=== PATIENT | female | born 1930 | race Caucasian/White ===

== ENCOUNTER 2017-06-12 05:45 | Inpatient (IN) | payer MEDICARE, OTHER ==
[2017-06-12] VITALS (11 sets, daily range): BP systolic 126–142; BP diastolic 43–79; PULSE 56–92; RESP 16–24; TEMP 96.6–97.9; O2SAT 86–100
[~2017-06-12] VITALS: Ht 149.9 cm; Wt 43.6 kg
[~2017-06-12 05:45] MED LIST: ARIC5TAB PO; BENZ100 PO; CELE200 PO; ENOX30P SQ; LORTA5 PO; MILK2400 PO
--- NOTE | 2017-06-12 06:02 | PD ---
HPI Chief Complaint: Cold / Flu Symptoms Time Seen by Provider: 05:55 Travel History International Travel<30 days: No Contact w/Intl Traveler<30days: No Traveled to known affect area: No History of Present Illness HPI The patient is an 86-year-old female that complains of a cough and congestion for 3-4 days. The patient does have some shortness of breath. She denies any chest pain. He does have a history of dementia and bronchitis. She is not on any antibiotics at this time. She did have some nausea and vomiting. PFSH Past Medical History Arthritis: Yes Asthma: Yes Anxiety: Yes Depression: Yes Cancer: No Cardiovascular Problems: No Dementia: Yes (EARLY) Diminished Hearing: Yes Endocrine: No Genitourinary: No Immune Disorder: No Musculoskeletal: Yes Neurologic: No Psychiatric: Yes Reproductive: No Past Surgical History Abdominal Surgery: Yes (APPENDECTOMY) Appendectomy: Yes Cardiac Surgery: No Ear Surgery: No Endocrine Surgery: No Eye Surgery: No Genitourinary Surgery: No Gynecologic Surgery: No Oral Surgery: No Thoracic Surgery: No Other Surgery: Yes Social History Alcohol Use: Yes (ON OCCASION) Tobacco Use: No Substance Use: No Allergies-Medications (Allergen,Severity, Reaction): Coded Allergies: No Known Allergies (Verified Adverse Reaction, Unknown, 06/12/17) Reported Meds & Prescriptions Reported Meds & Active Scripts Active Reported Hydrocodone-Acetaminophen 5-325 mg Tab 1 Tab PO BID PRN Donepezil 5 Mg Tab 5 Mg PO HS Celecoxib 200 Mg Cap 200 Mg PO DAILY Fluoxetine (Fluoxetine HCl) 10 Mg Tab 10 Mg PO DAILY Omeprazole 40 Mg Cap 40 Mg PO DAILY Memantine 5 Mg Tab 5 Mg PO BID Review of Systems Except as stated in HPI: all other systems reviewed are Neg Physical Exam Narrative GENERAL: The patient is alert, answers questions quickly and appropriately and appears oriented 3 in minimal respiratory distress. SKIN: Focused skin assessment warm/dry. HEAD: Atraumatic. Normocephalic. EYES: Pupils equal and round. No scleral icterus. No injection or drainage. ENT: No nasal bleeding or discharge. Mucous membranes pink and moist. NECK: Trachea midline. No JVD. CARDIOVASCULAR: Regular rate and rhythm. No murmur appreciated. RESPIRATORY: No accessory muscle use. Clear to auscultation except for a few widely scattered wheezes. Breath sounds equal bilaterally. GASTROINTESTINAL: Abdomen soft, non-tender, nondistended. Hepatic and splenic margins not palpable. MUSCULOSKELETAL: No obvious deformities. No clubbing. No cyanosis. No edema. NEUROLOGICAL: Awake and alert. No obvious cranial nerve deficits. Motor grossly within normal limits. Normal speech. PSYCHIATRIC: Appropriate mood and affect; insight and judgment normal. Data Data Last Documented VS Vital Signs Date Time Temp Pulse Resp B/P (MAP) Pulse Ox O2 Delivery O2 Flow Rate FiO2 06/12/17 06:30 98 Venturi Mask 50 06/12/17 05:58 87 18 06/12/17 05:54 97.9 133/65 (87) Orders Orders Electrocardiogram (06/12/17 05:55) Complete Blood Count With Diff (06/12/17 05:55) Comprehensive Metabolic Panel (06/12/17 05:55) Influenzae A/B Antigen (06/12/17 05:55) Urinalysis - C+S If Indicated (06/12/17 05:55) Blood Culture (06/12/17 05:55) Chest, Pa & Lat (06/12/17 05:55) Arterial Blood Gas (Abg) (06/12/17 05:55) Sodium Chloride 0.9% Flush (Ns Flush) (06/12/17 06:00) Lactic Acid (06/12/17 06:07) Labs Laboratory Tests Test 06/12/17 05:58 06/12/17 06:35 Blood Gas Puncture Site RT RADIAL Blood Gas Patient Temperature 98.6 Blood Gas HCO3 24 mmol/L Blood Gas Base Excess 1.3 mmol/L Blood Gas Oxygen Saturation 83 % Arterial Blood pH 7.50 Arterial Blood Partial Pressure CO2 31 mmHG Arterial Blood Partial Pressure O2 48 mmHG Arterial Blood Oxygen Content 14.1 Vol % Arterial Blood Carboxyhemoglobin 1.6 % Arterial Blood Methemoglobin 0.6 % Blood Gas Hemoglobin 12.1 G/DL Blood Gas Inspired Oxygen 21 % White Blood Count 14.6 TH/MM3 Red Blood Count 4.17 MIL/MM3 Hemoglobin 12.4 GM/DL Hematocrit 37.8 % Mean Corpuscular Volume 90.7 FL Mean Corpuscular Hemoglobin 29.7 PG Mean Corpuscular Hemoglobin Concent 32.7 % Red Cell Distribution Width 13.1 % Platelet Count 203 TH/MM3 Mean Platelet Volume 8.4 FL Neutrophils (%) (Auto) 87.7 % Lymphocytes (%) (Auto) 7.1 % Monocytes (%) (Auto) 5.0 % Eosinophils (%) (Auto) 0.0 % Basophils (%) (Auto) 0.2 % Neutrophils # (Auto) 12.9 TH/MM3 Lymphocytes # (Auto) 1.0 TH/MM3 Monocytes # (Auto) 0.7 TH/MM3 Eosinophils # (Auto) 0.0 TH/MM3 Basophils # (Auto) 0.0 TH/MM3 CBC Comment DIFF FINAL Differential Comment Blood Urea Nitrogen 20 MG/DL Random Glucose 105 MG/DL Albumin 3.0 GM/DL Calcium Level 7.9 MG/DL Sodium Level 136 MEQ/L Potassium Level 3.3 MEQ/L Chloride Level 100 MEQ/L Carbon Dioxide Level 26.1 MEQ/L Anion Gap 10 MEQ/L MDM Medical Decision Making Medical Screen Exam Complete: Yes Emergency Medical Condition: Yes Medical Record Reviewed: Yes Interpretation(s) The blood gases on room air show pH 7.50, CO2 31, PO2 48 with O2 sat 83% on room air. EKG shows sinus rhythm with frequent supraventricular complexes but no acute ST elevation or depression. Differential Diagnosis Pneumonia, bronchitis, hypoxemia, electrolyte disorder, anemia, viral syndrome Narrative Course Is now 07 and the patient is transferred to Dr. Lieberman. Karan Mancilla MD Jun 12, 2017 06:02
[2017-06-12] MEDS ORDERED: CELE1CAP8 PO (06:08)
[2017-06-12] MEDS ORDERED: HYDR-3516 PO (06:08)
[2017-06-12] MEDS ORDERED: MEMA1TAB PO (06:08)
[2017-06-12] MEDS ORDERED: OMEP40CA2 PO (06:08)
[2017-06-12] MEDS ORDERED: FLUO10TA PO (06:08)
[2017-06-12] MEDS ORDERED: DONE5TAB7 PO (06:08)
[2017-06-12 06:13] LABS: BLOOD GAS BASE EXCESS 1.3 mmol/L (-2-2); BLOOD GAS CARBOXYHEMOGLOBIN 1.6 % (0-4); BLOOD GAS HCO3 24 mmol/L (22-26); BLOOD GAS METHEMOGLOBIN 0.6 % (0-2); BLOOD GAS O2 HGB SATURATION 83 % (90-100); BLOOD GAS OXYGEN CONTENT 14.1 Vol % (12.0-20.0); BLOOD GAS PCO2 31 mmHG (38-42); BLOOD GAS PO2 48 mmHG (61-120); BLOOD GAS TOTAL HGB 12.1 G/DL (12.0-16.0); TEMP CORR TO 98.6
[2017-06-12 06:14] LABS: CRITICAL VALUE YES; DRAW SITE RT RADIAL; FIO2 21 %; NUMBER OF ARTERIAL PUNCTURES 1; STAT YES; ULNAR PULSE Y
[2017-06-12 06:51] LABS: AUTOMATED NEUTROPHIL # 12.9 TH/MM3 (1.8-7.7); BASOPHIL % 0.2 % (0.0-2.0); HEMATOCRIT 37.8 % (35.0-46.0); HEMO FLAGS DIFF FINAL; LYMPH % 7.1 % (9.0-44.0); MEAN CELL VOLUME 90.7 FL (80.0-100.0); MEAN CORPUSCULAR HEMOGLOBIN 29.7 PG (27.0-34.0); MEAN CORPUSCULAR HGB CONC 32.7 % (32.0-36.0); NEUT % 87.7 % (16.0-70.0); PLATELET COUNT 203 TH/MM3 (150-450); RED BLOOD COUNT 4.17 MIL/MM3 (4.00-5.30); RED CELL DISTRIBUTION WIDTH 13.1 % (11.6-17.2); WHITE BLOOD COUNT 14.6 TH/MM3 (4.0-11.0)
[2017-06-12 07:00] LABS: CHLORIDE 100 MEQ/L (98-107); POTASSIUM 3.3 MEQ/L (3.5-5.1); SODIUM (NA) 136 MEQ/L (136-145)
[2017-06-12 07:04] LABS: ANION GAP 10 MEQ/L (5-15); BICARBONATE 26.1 MEQ/L (21.0-32.0)
[2017-06-12 07:05] LABS: BLOOD UREA NITROGEN 20 MG/DL (7-18)
[2017-06-12 07:08] LABS: ALT (GPT) 18 U/L (10-53); AST (GOT) 21 U/L (15-37); GLOMERULAR FILTRATION RATE 96 ML/MIN (>89)
[2017-06-12 07:09] LABS: TOTAL BILIRUBIN ADULT 0.4 MG/DL (0.2-1.0)
[2017-06-12 07:10] LABS: ALKALINE PHOSPHATASE 65 U/L (45-117)
--- NOTE | 2017-06-12 07:17 | RADRPT ---
EXAM DATE/TIME: 06/12/2017 06:04 [facility] COMPARISON: No previous studies available for comparison. INDICATIONS : Cough. MEDICAL HISTORY : None. SURGICAL HISTORY : None. ENCOUNTER: Initial ACUITY: 1 day PAIN SCORE: Non-responsive. LOCATION: Bilateral chest FINDINGS: There is bilateral interstitial disease. The appearance suggests chronic bilateral interstitial lung disease. There is a mild increased parenchymal changes in the right upper lung.. No pleural effusions . Heart size is within normal limits. The bony structures appear to grossly intact. CONCLUSION: There appears to be chronic bilateral interstitial lung disease. There is a focal parenchymal consoli dation in the right upper lung. Federico Flower MD on June 12, 2017 at 7:14 Board Certified Radiologist. This report was verified electronically.
[2017-06-12] MEDS ORDERED: cefTRIAXone INJ 1,000 MG in SODIUM CHLORIDE 0.9% INJ 100 ML IV ONE (07:45)
[2017-06-12] MEDS ORDERED: AZITHROMYCIN INJ 500 MG in SODIUM CHLOR 0.9% 250 ML INJ 250 ML IV ONE (07:45)
[2017-06-12] MEDS ORDERED: RESP: ALBUTEROL 2.5 MG/IPRATROPIUM 0.5 MG NEB (SCH) NEB ONE (07:45)
--- NOTE | 2017-06-12 07:59 | PD ---
Data Data Last Documented VS Vital Signs Date Time Temp Pulse Resp B/P (MAP) Pulse Ox O2 Delivery O2 Flow Rate FiO2 06/12/17 07:05 57 18 Venturi Mask 50 06/12/17 07:03 135/49 (77) 100 06/12/17 05:54 97.9 Orders Orders Electrocardiogram (06/12/17 05:55) Complete Blood Count With Diff (06/12/17 05:55) Comprehensive Metabolic Panel (06/12/17 05:55) Influenzae A/B Antigen (06/12/17 05:55) Urinalysis - C+S If Indicated (06/12/17 05:55) Blood Culture (06/12/17 05:55) Chest, Pa & Lat (06/12/17 05:55) Arterial Blood Gas (Abg) (06/12/17 05:55) Sodium Chloride 0.9% Flush (Ns Flush) (06/12/17 06:00) Lactic Acid (06/12/17 06:07) Albuterol-Ipratropium Neb (Duoneb Neb) (06/12/17 07:45) Ceftriaxone Inj (Rocephin Inj) (06/12/17 07:45) Azithromycin Inj (Zithromax Inj) (06/12/17 07:45) Admit Order (Ed Use Only) (06/12/17 ) Labs Laboratory Tests Test 06/12/17 05:58 06/12/17 06:35 06/12/17 07:50 Blood Gas Puncture Site RT RADIAL Blood Gas Patient Temperature 98.6 Blood Gas HCO3 24 mmol/L Blood Gas Base Excess 1.3 mmol/L Blood Gas Oxygen Saturation 83 % Arterial Blood pH 7.50 Arterial Blood Partial Pressure CO2 31 mmHG Arterial Blood Partial Pressure O2 48 mmHG Arterial Blood Oxygen Content 14.1 Vol % Arterial Blood Carboxyhemoglobin 1.6 % Arterial Blood Methemoglobin 0.6 % Blood Gas Hemoglobin 12.1 G/DL Blood Gas Inspired Oxygen 21 % White Blood Count 14.6 TH/MM3 Red Blood Count 4.17 MIL/MM3 Hemoglobin 12.4 GM/DL Hematocrit 37.8 % Mean Corpuscular Volume 90.7 FL Mean Corpuscular Hemoglobin 29.7 PG Mean Corpuscular Hemoglobin Concent 32.7 % Red Cell Distribution Width 13.1 % Platelet Count 203 TH/MM3 Mean Platelet Volume 8.4 FL Neutrophils (%) (Auto) 87.7 % Lymphocytes (%) (Auto) 7.1 % Monocytes (%) (Auto) 5.0 % Eosinophils (%) (Auto) 0.0 % Basophils (%) (Auto) 0.2 % Neutrophils # (Auto) 12.9 TH/MM3 Lymphocytes # (Auto) 1.0 TH/MM3 Monocytes # (Auto) 0.7 TH/MM3 Eosinophils # (Auto) 0.0 TH/MM3 Basophils # (Auto) 0.0 TH/MM3 CBC Comment DIFF FINAL Differential Comment Blood Urea Nitrogen 20 MG/DL Creatinine 0.59 MG/DL Random Glucose 105 MG/DL Total Protein 8.2 GM/DL Albumin 3.0 GM/DL Calcium Level 7.9 MG/DL Alkaline Phosphatase 65 U/L Aspartate Amino Transf (AST/SGOT) 21 U/L Alanine Aminotransferase (ALT/SGPT) 18 U/L Total Bilirubin 0.4 MG/DL Sodium Level 136 MEQ/L Potassium Level 3.3 MEQ/L Chloride Level 100 MEQ/L Carbon Dioxide Level 26.1 MEQ/L Anion Gap 10 MEQ/L Estimat Glomerular Filtration Rate 96 ML/MIN Lactic Acid Level 1.7 mmol/L Urine Collection Type CLEAN CATCH Urine Color YELLOW Urine Turbidity SLIGHT Urine pH 6.0 Urine Specific [place] 1.026 Urine Protein 100 mg/dL Urine Glucose (UA) NEG mg/dL Urine Ketones TRACE mg/dL Urine Occult Blood MOD Urine Nitrite NEG Urine Bilirubin NEG Urine Leukocyte Esterase TRACE Urine RBC 10-14 /hpf Urine WBC 25-49 /hpf Urine Squamous Epithelial Cells 0-5 /hpf Urine Amorphous Sediment FEW Urine Bacteria MOD /hpf Microscopic Urinalysis Comment CULTURE INDICATED Urine Collection Time [address] [facility] Supervised Visit with VAUGHN: No Narrative Course Patient care assumed from Dr. Mancilla at 07 100, this is an 86-year-old female with a history of mild dementia and pulmonary fibrosis presents emergency department with cough and congestion for the past few days. Her son became concerned when she was more sleepy than normal today and brought her into the hospital, he states that he wanted her to come to the hospital yesterday but she didn't want to. She's not wearing her hearing aids and is difficult to communicate however she is alert and awake and oriented. Chest x-ray does reveal a right upper lobe infiltrate along with chronic pulmonary scarring throughout the lungs. Initial sats are 91 on room air, she's been on the simple mask since she's been here, we are giving duo Neb starting on azithromycin and Rocephin will weaned to nasal cannula. Discussed with Dr. Cao for admission to the hospital. Diagnosis Primary Impression: Hypoxia Additional Impression: Pneumonia Devin Lieberman MD Jun 12, 2017 07:59
[2017-06-12 08:03] LABS: BLOOD, URINE MOD (NEG); GLUCOSE,URINE NEG (NEG); KETONE, URINE TRACE mg/dL (NEG); NITRITE,URINE NEG (NEG)
[2017-06-12 08:04] LABS: METHOD OF COLLECTION CLEAN CATCH
[2017-06-12 08:05] LABS: URINE COLOR YELLOW (YELLW/STRAW)
[2017-06-12] MEDS: SODIUM CHLORIDE 0.9% FLUSH 10 ML FLUSH IVF PRN ×2 (08:05→08:57)
[2017-06-12 08:15] LABS: BACTERIA, URINE MOD /hpf; COMMENT (UR) CULTURE INDICATED; CULTURE IF INDICATED CULTURE INDICATED; SQUAMOUS EPITHELIAL CELL URINE 0-5 /hpf (0-5)
[2017-06-12 08:16] LABS: COMMENT2 (UR) MUCOUS PRESENT
[2017-06-12] MEDS ORDERED: RESP: ALBUTEROL 1.25 MG/3 ML NEB (PRN) NEB (08:30)
[2017-06-12] MEDS: methylPREDNISolone SOD SUCC 125 MG/2 ML VIAL IV PUSH SCH ×2 (08:59→21:37)
[2017-06-12] MEDS: RESP: ALBUTEROL 2.5 MG/IPRATROPIUM 0.5 MG NEB (SCH) NEB ×3 (09:54→21:10)
--- NOTE | 2017-06-12 10:06 | EKG ---
Date Performed: 06/12/2017 Time Performed: 06:30:22 PTAGE: 86 years EKG: Sinus rhythm WITH FREQUENT SUPRAVENTRICULAR PREMATURE COMPLEXES ABNORMAL RHYTHM ECG PREVIOUS TRACING : 11/05/2013 22.38 Compared to the previous tracing PACs present DOCTOR: Jenny Allen Interpretating Date/Time 06/12/2017 10:06:01
--- NOTE | 2017-06-12 10:44 | HHI.HP ---
HPI Service [facility] Primary Care Physician Miller Oliveira MD Admission Diagnosis Pneumonia, Hypoxic respiratory failure. Diagnoses: Chief Complaint: feeling sick, coughing Travel History International Travel<30 Days: No Contact w/Intl Traveler <30 Da: No Traveled to Known Affected Are: No Sepsis Criteria SIRS Criteria (2 or more): RR > 20 or PaCO2 < 32, WBC > 50251, < 4000 or > 10 % bands Sepsis Criteria (SIRS+source): Infect source susp/known History of Present Illness 86-year-old white female being admitted for sepsis secondary to pneumonia. Full history was attempted however history is limited since the patient is very hard of hearing (thus unable to answer all questions) and is disoriented at least partially (to time). Per the patient she states that she started feeling sick at home last night, had poor sleep, had increased coughing and did have some nonspecific vomiting which was "a little bit." She said her son brought her to the emergency room. Patient denies any diarrhea or abdominal pain or any dysuria. She thinks it's 1970s and is unsure of what month it is. She says she lives with her son. In the emergency room she was found to have an elevated white count and a Angelika < 2. Given zithromax and rocephin. Review of Systems unable to obtain due to difficulty communicating and some disorientation Past Family Social History Past Medical History asthma as a child Past Medical History Arthritis: Yes Asthma: Yes Anxiety: Yes Depression: Yes Dementia: Yes (EARLY) Diminished Hearing: Yes Musculoskeletal: Yes Psychiatric: Yes Past Surgical History Abdominal Surgery: Yes (APPENDECTOMY) Allergies: Coded Allergies: No Known Allergies (Verified Adverse Reaction, Unknown, 06/12/17) Family History HTN Social History lives with son, denies tobacco usage but reports her smoked when he was alive and while living with him Physical Exam Vital Signs Vital Signs Date Time Temp Pulse Resp B/P (MAP) Pulse Ox O2 Delivery O2 Flow Rate FiO2 06/12/17 10:05 96.6 83 20 133/62 (85) 95 12/6/17 09:54 06/12/17 09:10 59 16 132/59 (83) 96 Nasal Cannula 2.00 06/12/17 08:15 97 Nasal Cannula 2.00 06/12/17 08:10 56 16 126/43 (70) 97 Nasal Cannula 2.00 06/12/17 08:04 96 Nasal Cannula 2.00 06/12/17 07:05 57 18 Venturi Mask 50 06/12/17 07:03 56 18 135/49 (77) 100 Venturi Mask 50 06/12/17 06:30 98 Venturi Mask 50 06/12/17 05:58 87 18 91 Room Air 06/12/17 05:54 97.9 87 18 133/65 (87) 91 Physical Exam VS: Afebrile GENERAL: Elderly thin female, otherwise well-nourished, sitting up in bed, awake , alert, no acute distress SKIN: Warm and dry. No obvious tears or abrasions. EYES: No scleral icterus. No injection or drainage. ENT: No nasal bleeding or discharge. Mucous membranes pink and moist. CARDIOVASCULAR: Regular rate and rhythm. no murmurs RESPIRATORY: No accessory muscle use. Has obvious right sided diffuse rhonchi and crackles, left side is clear GASTROINTESTINAL: Abdomen soft, non-tender, nondistended. Extremities: No clubbing, cyanosis, or edema. No obvious deformities. MUSCULOSKELETAL: grossly intact ROM with 5/5 strength in BL upper and lower extremities proximally NEUROLOGICAL: Awake and alert. No obvious cranial nerve deficits. No facial droop nor slurred speech noted. PSYCHIATRIC: Appropriate mood and affect; oriented only to person and place, not time. Laboratory Laboratory Tests Test 06/12/17 05:58 06/12/17 06:35 06/12/17 07:50 Blood Gas Puncture Site RT RADIAL Blood Gas Patient Temperature 98.6 Blood Gas HCO3 24 Blood Gas Base Excess 1.3 Blood Gas Oxygen Saturation 83 Arterial Blood pH 7.50 Arterial Blood Partial Pressure CO2 31 Arterial Blood Partial Pressure O2 48 Arterial Blood Oxygen Content 14.1 Arterial Blood Carboxyhemoglobin 1.6 Arterial Blood Methemoglobin 0.6 Blood Gas Hemoglobin 12.1 Blood Gas Inspired Oxygen 21 White Blood Count 14.6 Red Blood Count 4.17 Hemoglobin 12.4 Hematocrit 37.8 Mean Corpuscular Volume 90.7 Mean Corpuscular Hemoglobin 29.7 Mean Corpuscular Hemoglobin Concent 32.7 Red Cell Distribution Width 13.1 Platelet Count 203 Mean Platelet Volume 8.4 Neutrophils (%) (Auto) 87.7 Lymphocytes (%) (Auto) 7.1 Monocytes (%) (Auto) 5.0 Eosinophils (%) (Auto) 0.0 Basophils (%) (Auto) 0.2 Neutrophils # (Auto) 12.9 Lymphocytes # (Auto) 1.0 Monocytes # (Auto) 0.7 Eosinophils # (Auto) 0.0 Basophils # (Auto) 0.0 CBC Comment DIFF FINAL Differential Comment Blood Urea Nitrogen 20 Creatinine 0.59 Random Glucose 105 Total Protein 8.2 Albumin 3.0 Calcium Level 7.9 Alkaline Phosphatase 65 Aspartate Amino Transf (AST/SGOT) 21 Alanine Aminotransferase (ALT/SGPT) 18 Total Bilirubin 0.4 Sodium Level 136 Potassium Level 3.3 Chloride Level 100 Carbon Dioxide Level 26.1 Anion Gap 10 Estimat Glomerular Filtration Rate 96 Lactic Acid Level 1.7 Urine Collection Type CLEAN CATCH Urine Color YELLOW Urine Turbidity SLIGHT Urine pH 6.0 Urine Specific [place] 1.026 Urine Protein 100 Urine Glucose (UA) NEG Urine Ketones TRACE Urine Occult Blood MOD Urine Nitrite NEG Urine Bilirubin NEG Urine Leukocyte Esterase TRACE Urine RBC 10-14 Urine WBC 25-49 Urine Squamous Epithelial Cells 0-5 Urine Amorphous Sediment FEW Urine Bacteria MOD Microscopic Urinalysis Comment CULTURE INDICATED Urine Collection Time 0750 Date/Time Source Procedure Growth Status 06/12/17 06:40 Blood Peripheral Aerobic Blood Culture Pending Received 06/12/17 06:40 Blood Peripheral Anaerobic Blood Culture Pending Received 06/12/17 06:35 Nasal Washing Influenza Types A,B Antigen (ARMAAN) - Final NEGATIVE FOR FLU A AND B ANTIGEN.... Complete 06/12/17 07:50 Urine Clean Catch Urine Culture Pending Received Result Diagram: 06/12/17 0635 06/12/1735 Caprini VTE Risk Assessment Caprini VTE Risk Assessment: Mod/High Risk (score >= 2) Caprini Risk Assessment Model Point Value = 1 Point Value = 2 Point Value = 3 Point Value = 5 Age 41-60 Minor surgery BMI > 25 kg/m2 Swollen legs Varicose veins or History of unexplained or recurrent spontaneous Oral contraceptives or hormone replacement Sepsis (< 1 month) Serious lung disease, including pneumonia (< 1 month) Abnormal pulmonary function Acute myocardial infarction Congestive heart failure (< 1 month) History of inflammatory bowel disease Medical patient at bed rest Age 61-74 Arthroscopic surgery Major open surgery (> 45 min) Laparoscopic surgery (> 45 min) Malignancy Confined to bed (> 72 hours) Immobilizing plaster cast Central venous access Age >= 75 History of VTE Family history of VTE Factor V Leiden Prothrombin [id number] Lupus anticoagulant Anticardiolipin antibodies Elevated serum homocysteine Heparin-induced thrombocytopenia Other congenital or acquired thrombophilia Stroke (< 1 month) Elective arthroplasty Hip, pelvis, or leg fracture Acute spinal cord injury (< 1 month) Prophylaxis Regimen Total Risk Factor Score Risk Level Prophylaxis Regimen 0-1 Low Early ambulation 2 Moderate Order ONE of the following: *Sequential Compression Device (SCD) *Heparin 5000 units SQ BID 3-4 Higher Order ONE of the following medications: *Heparin 5000 units SQ TID *Enoxaparin/Lovenox 40 mg SQ daily (WT < 150 kg, CrCl > 30 mL/min) *Enoxaparin/Lovenox 30 mg SQ daily (WT < 150 kg, CrCl > 10-29 mL/min) *Enoxaparin/Lovenox 30 mg SQ BID (WT < 150 kg, CrCl > 30 mL/min) AND/OR *Sequential Compression Device (SCD) 5 or more Highest Order ONE of the following medications: *Heparin 5000 units SQ TID (Preferred with Epidurals) *Enoxaparin/Lovenox 40 mg SQ daily (WT < 150 kg, CrCl > 30 mL/min) *Enoxaparin/Lovenox 30 mg SQ daily (WT < 150 kg, CrCl > 10-29 mL/min) *Enoxaparin/Lovenox 30 mg SQ BID (WT < 150 kg, CrCl > 30 mL/min) AND *Sequential Compression Device (SCD) Assessment and Plan Assessment and Plan Sepsis secondary to community-acquired pneumonia - IV fluids, antibiotics, f/u blood and urine cultures Pneumonia - Antibiotics as above, DuoNebs - sputum studies + antigens ordered - Independent review the chest x-ray shows diffuse patchy infiltrates with possible prominent focus consolidation in the right upper lung Acute respiratory distress 2/2 hypoxia - Likely secondary to pneumonia and possible undiagnosed chronic lung disease secondary to secondhand smoke + hx of asthma - Supplemental oxygen, wean as tolerated, IV steroids until on room air - RT confirms sats down to 86% on RA, Wells score 0, ordering d-dimer - fall precautions, PT eval given frail appearance gerd - home PPI dementia - home donepezil and memantine chronic pain - home celecoxib and norco D/w with case management - son relayed that pt lives home alone and he lives nearby to check on her and assist. Physician Certification 2 Midnight Certification Type: Admission for Inpatient Services Order for Inpatient Services The services are ordered in accordance with Medicare regulations or non- Medicare payer requirements, as applicable. In the case of services not specified as inpatient-only, they are appropriately provided as inpatient services in accordance with the 2-midnight benchmark. Estimated LOS (days): 3 days is the estimated time the patient will need to remain in the hospital, assuming treatment plan goals are met and no additional complications. Post-Hospital Plan: Not yet determined Jose A Cao MD Jun 12, 2017 10:44
[2017-06-12] MEDS ORDERED: SODIUM CHLOR 0.9% 1000 ML INJ 1,000 ML IV ONE (11:00)
[2017-06-12] MEDS: FLUoxetine HCL 10 MG CAP PO SCH (13:03)
[2017-06-12] MEDS: CELECOXIB 200 MG CAP PO SCH (13:03)
[2017-06-12] MEDS: MEMANTINE HCL 5 MG TAB PO SCH ×2 (13:03→21:37)
[2017-06-12] MEDS: PANTOPRAZOLE SOD 40 MG DELAYED RELEASE TAB PO SCH (13:03)
[2017-06-12] MEDS: SODIUM CHLOR 0.9% 1000 ML INJ 1,000 ML IV SCH (13:04)
[2017-06-12] MEDS: DONEPEZIL HCL 5 MG TAB PO SCH (21:37)
[2017-06-13] VITALS (8 sets, daily range): BP systolic 124–141; BP diastolic 58–68; PULSE 80–102; RESP 18–26; TEMP 97.2–99; O2SAT 92–97
[2017-06-13] MEDS: RESP: ALBUTEROL 2.5 MG/IPRATROPIUM 0.5 MG NEB (SCH) NEB ×4 (03:23→21:33)
[2017-06-13] MEDS: cefTRIAXone INJ 1,000 MG in SODIUM CHLORIDE 0.9% INJ 100 ML IV SCH (07:10)
[2017-06-13] MEDS: FLUoxetine HCL 10 MG CAP PO SCH (09:49)
[2017-06-13] MEDS: methylPREDNISolone SOD SUCC 125 MG/2 ML VIAL IV PUSH SCH ×3 (09:50→21:40)
[2017-06-13] MEDS: MEMANTINE HCL 5 MG TAB PO SCH ×2 (09:50→21:40)
[2017-06-13] MEDS: CELECOXIB 200 MG CAP PO SCH (09:50)
[2017-06-13] MEDS: PANTOPRAZOLE SOD 40 MG DELAYED RELEASE TAB PO SCH (09:50)
[2017-06-13] MEDS: AZITHROMYCIN INJ 500 MG in SODIUM CHLOR 0.9% 250 ML INJ 250 ML IV SCH (09:56)
[2017-06-13] MEDS: SODIUM CHLOR 0.9% 1000 ML INJ 1,000 ML IV SCH (12:13)
[2017-06-13] MEDS: ENOXAPARIN SODIUM 30 MG/0.3 ML SYRINGE SQ SCH (12:13)
--- NOTE | 2017-06-13 15:05 | HHI.PR ---
Subjective Remarks RN denies any deterioration. Pt herself says she that's coughing up some blood, son affirms this as well. She says she's not feeling like she could be at home. No lung doctor. Son says she has a hx of scar tissue. Objective Vital Signs Date Time Temp Pulse Resp B/P (MAP) Pulse Ox O2 Delivery O2 Flow Rate FiO2 06/13/17 12:00 97.6 101 20 124/59 (80) 95 06/13/17 10:14 96 Nasal Cannula 2.00 06/13/17 08:00 97.5 82 20 141/65 (90) 95 06/13/17 04:00 97.7 102 26 136/59 (84) 97 06/13/17 00:00 97.4 87 24 137/65 (89) 96 06/12/17 21:10 94 Nasal Cannula 2.00 06/12/17 20:00 96.9 79 24 131/57 (81) 97 06/12/17 15:54 93 Nasal Cannula 2.00 06/12/17 15:50 86 21 06/12/17 15:50 96.6 77 20 128/63 (84) 95 I/O 06/12/17 06/12/17 06/12/17 06/13/17 06/13/17 06/13/17 06:59 14:59 22:59 06:59 14:59 22:59 Intake Total 350 ml 1453 ml 480 ml 460 ml Balance 350 ml 1453 ml 480 ml 460 ml Intake Oral 180 ml 480 ml 460 ml IV Total 350 ml 1273 ml # Voids 1 2 2 # Bowel Movements 0 0 Result Diagram: 06/12/1735 06/12/17 0635 Objective Remarks Very minimally labored breathing No cyanosis Diffuse expiratory wheezing bilaterally more on the left than the right A/P Assessment and Plan Sepsis secondary to community-acquired pneumonia - IV fluids, antibiotics, f/u blood cultures, UC neg, Pneumonia - Antibiotics as above, DuoNebs - antigens ordered - negative - Independent review the chest x-ray shows diffuse patchy infiltrates with possible prominent focus consolidation in the right upper lung - will order solumedrol given persistent SOB and wheezing Hemoptysis - new problem, ? bronchitis vs other cause, should be further elucidated via CTA Acute respiratory distress 2/2 hypoxia - Likely secondary to pneumonia and possible undiagnosed chronic lung disease secondary to secondhand smoke + hx of asthma - Supplemental oxygen, wean as tolerated, continue IV steroids, sputum culture pending - ddimer elevated, ordering CT chest angio - fall precautions, PT eval given frail appearance gerd - home PPI dementia - home donepezil and memantine chronic pain - home celecoxib and norco Lovenox for DVT prevention Jose A Cao MD Jun 13, 2017 15:05
--- NOTE | 2017-06-13 20:53 | RADRPT ---
EXAM DATE/TIME: 06/13/2017 19:55 [facility] COMPARISON: CHEST PA & LAT, June 12, 2017, 6:04. INDICATIONS : Difficulty breathing. Cough. IV CONTRAST: 75 cc Omnipaque 350 (iohexol) IV RADIATION DOSE: 8.07 CTDIvol (mGy) MEDICAL HISTORY : Dementia. Asthma. SURGICAL HISTORY : Appendectomy. ENCOUNTER: Initial ACUITY: 3 days PAIN SCALE: 0/10 LOCATION: Bilateral chest TECHNIQUE: Volumetric scanning of the chest was performed using a pulmonary embolism protocol MIP images were re constructed. Using automated exposure control and adjustment of the mA and/or kV according to patien t size, radiation dose was kept as low as reasonably achievable to obtain optimal diagnostic quality images. DICOM format image data is available electronically for review and comparison. Follow-up recommendations for detected pulmonary nodules are based at a minimum on nodule size and pa tient risk factors according to Fleischner Society Guidelines. FINDINGS: PULMONARY ARTERIES: No filling defects are seen in the pulmonary arteries through the segmental level. LUNGS: Diffuse ground-glass infiltrates are noted bilaterally suggestive of moderate pulmonary edema or pneu monia. Clinical correlation is recommended. No pulmonary nodule or mass is noted. PLEURAE: Tiny bilateral pleural effusions are noted. There is no pleural thickening. MEDIASTINUM: Pretracheal, right paratracheal, AP window and subcarinal mediastinal as well as bilateral hilar lymp hadenopathy is noted and is nonspecific. The heart is enlarged. MUSCULOSKELETAL: Degenerative changes and scoliosis of the thoracolumbar spine are noted. Mild chronic compression def ormity involving T12 is noted. MISCELLANEOUS: The visualized upper abdominal organs demonstrate no acute abnormality. CONCLUSION: 1. No evidence of pulmonary embolism. 2. Diffuse ground-glass infiltrates bilaterally suggestive of moderate pulmonary edema or pneumonia. Clinical correlation is recommended. 3. Pretracheal, right paratracheal, AP window and subcarinal mediastinal as well as bilateral hilar l ymphadenopathy which is nonspecific. 4. Cardiomegaly. 5. Small bilateral pleural effusions. 6. Degenerative changes and scoliosis of the thoracolumbar spine. 7. Chronic mild compression deformity involving T12. Devin Parekh MD on June 13, 2017 at 20:46 Board Certified Radiologist. This report was verified electronically.
[2017-06-13] MEDS ORDERED: IOHEXOL 350 MG/ML 10 ML VIAL (for RAD DIAG) IVCONTRAST ONE (20:55)
--- NOTE | 2017-06-13 21:14 | MB ---
cc: Shadia AGOSTO M.D. DATE OF CONSULTATION 06/13/17 REASON FOR CONSULTATION Pneumonia and pulmonary infiltrates with hemoptysis. HISTORY OF PRESENT ILLNESS This is an 86-year-old female with a history of cough, chest congestion and hemoptysis who was admitted through the emergency room since she was having persistent cough and vomiting and feeling sick for the past two to three days. The patient was not running any fever. She denied any abdominal pains or nausea or vomiting. She was brought to the ER and a chest x-ray was done which showed diffuse interstitial lung disease as well as a right upper lobe lung infiltrate. The patient has been coughing up a little bloody mucus and had an elevated white count and thus she was started on IV antibiotics including Rocephin and Zithromax and now admitted. She has been on oxygen at two liters and was hypoxic on room air. Denied any GI bleed. She has had no leg or calf muscle pains. PAST MEDICAL HISTORY 1. History of asthma remotely 2. History for an appendectomy 3. Hip fracture and repair 4. History of mild dementia. No history of hypertension or diabetes. HABITS No history of smoking or significant alcohol use but was exposed to secondhand smoke from her . ALLERGIES None were listed. REVIEW OF SYSTEMS The patient denies recent weight loss. She has had some cough, congestion, chest tightness and wheezing. She has epigastric distress with reflux. No urinary symptoms. No leg or calf muscle pains, but has some joint pains and hip pain. She has memory loss. No depression or anxiety. PHYSICAL EXAMINATION GENERAL: This is a thinly built elderly lady who is sitting upright in no acute distress on oxygen at two liters. VITAL SIGNS: Blood pressure 130/70, pulse 85, respirations 20, temperature 97.6. HEENT: Head normocephalic. Pupils are reactive. Tongue is moist. Throat was clear. Nasal mucosa edematous. NECK: Supple. No bruits. No venous distension. No thyromegaly. CHEST: Equal movements with percussion note resonant throughout. Crackles heard throughout the lower lung srinivasan with wheezes bilaterally. HEART: Irregular S1, S2 with no murmur. No S3. ABDOMEN: Soft, scaphoid without masses. No organomegaly or tenderness. Bowel sounds are active. EXTREMITIES: No edema. Mild varicosities and no calf tenderness. Homans' sign is negative. NEUROLOGIC: Reflexes are 1+ with no gross motor deficits or sensory deficits. Cranial nerves grossly intact. RECTAL: Exam is deferred. IMPRESSION 1. Right upper lobe pneumonia with hypoxemia. 2. Interstitial lung disease with possible UIP 3. History of asthma. 4. Dementia. 5. Rule out pulmonary emboli 6. Degenerative arthritis. PLAN The patient has been started on antibiotic coverage including Rocephin 1 gram IV and Zithromax 500 mg IV which we will continue. Sputum will be sent for Gram stain and culture, nebulized DuoNeb solution added q.i.d. Also a CTA of the chest to be obtained. The patient will have a pulmonary function study at the bedside. Oxygen supplementation continued at 2-3 liters nasal cannula. Sputum will be sent for Gram stain and culture. The patient may need a bronchoscopy eventually. We will wait for the CT results to determine the same. Thank you, Dr. Stratton , for this consultation. MD GARRISON Daniel/ /7:08 PM /8:50 PM
[2017-06-13] MEDS: SODIUM CHLORIDE 0.9% FLUSH 10 ML FLUSH IVF PRN (21:40)
[2017-06-13] MEDS: DONEPEZIL HCL 5 MG TAB PO SCH (21:40)
[2017-06-14] VITALS (22 sets, daily range): BP systolic 112–158; BP diastolic 45–87; PULSE 64–114; RESP 18–29; TEMP 96.4–97.8; O2SAT 29–98
[2017-06-14] MEDS: RESP: ALBUTEROL 2.5 MG/IPRATROPIUM 0.5 MG NEB (SCH) NEB ×4 (03:35→21:04)
[2017-06-14] MEDS: ACETAMINOPHEN/HYDROcodone 325 MG/5 MG TAB PO PRN (03:47)
[2017-06-14] MEDS ORDERED: FUROSEMIDE 40 MG/4 ML VIAL IV PUSH ONE ×2 (04:00→05:15)
[2017-06-14] MEDS ORDERED: POTASSIUM CHLORIDE 20 MEQ CONTROLLED RELEASE TAB PO ONE (04:00)
[2017-06-14] MEDS ORDERED: MORPHINE SULFATE 2 MG/ML INJ IV PUSH ONE (05:15)
[2017-06-14] MEDS: methylPREDNISolone SOD SUCC 125 MG/2 ML VIAL IV PUSH SCH ×2 (05:28→15:00)
[2017-06-14] MEDS: cefTRIAXone INJ 1,000 MG in SODIUM CHLORIDE 0.9% INJ 100 ML IV SCH (06:19)
[2017-06-14] MEDS: AZITHROMYCIN INJ 500 MG in SODIUM CHLOR 0.9% 250 ML INJ 250 ML IV SCH (08:12)
[2017-06-14] MEDS: MEMANTINE HCL 5 MG TAB PO SCH ×2 (09:41→19:56)
[2017-06-14] MEDS: PANTOPRAZOLE SOD 40 MG DELAYED RELEASE TAB PO SCH (09:41)
[2017-06-14] MEDS: FLUoxetine HCL 10 MG CAP PO SCH (09:41)
[2017-06-14] MEDS: CELECOXIB 200 MG CAP PO SCH (09:41)
[2017-06-14 10:20] LABS: BLOOD GAS BASE EXCESS 5.5 mmol/L (-2-2); BLOOD GAS CARBOXYHEMOGLOBIN 1.3 % (0-4); BLOOD GAS HCO3 29 mmol/L (22-26); BLOOD GAS METHEMOGLOBIN 0.6 % (0-2); BLOOD GAS O2 HGB SATURATION 94 % (90-100); BLOOD GAS OXYGEN CONTENT 14.2 Vol % (12.0-20.0); BLOOD GAS PCO2 34 mmHg (38-42); BLOOD GAS PO2 66 mmHg (61-120); BLOOD GAS TOTAL HGB 10.8 G/DL (12.0-16.0)
[2017-06-14 10:20] LABS: BICARBONATE 27.8 MEQ/L (21.0-32.0)
[2017-06-14 10:21] LABS: CRITICAL VALUE YES; DRAW SITE RT RADIAL; LITER FLOW 2 L/M; NUMBER OF ARTERIAL PUNCTURES 1; OXYGEN DEVICE NASAL CANNULA; STAT YES; ULNAR PULSE PRESENT
[2017-06-14 10:22] LABS: POTASSIUM 2.7 MEQ/L (3.5-5.1)
[2017-06-14] MEDS: SODIUM CHLOR 0.9% 1000 ML INJ 1,000 ML IV SCH (10:38)
--- NOTE | 2017-06-14 11:23 | HHI.PR ---
Subjective Remarks Nursing does report some deterioration since last night, patient apparently needed Ventimask and then needed BiPAP. Her fluids were held and she was given Lasix with some improvement hours later this morning. Per RT the patient is now doing better and is asking to be transitioned to the nasal cannula. Son is at bedside. Patient denies having any chest pain at all during last night. Objective Vital Signs Date Time Temp Pulse Resp B/P (MAP) Pulse Ox O2 Delivery O2 Flow Rate FiO2 06/14/17 10:00 64 26 122/61 (81) 93 06/14/17 09:40 95 Nasal Cannula 2.00 06/14/17 09:00 90 23 135/74 (94) 97 06/14/17 08:00 97.5 82 29 133/59 (83) 94 06/14/17 07:30 97 35 06/14/17 04:10 93 35 06/14/17 04:00 96.4 88 18 158/69 (98) 94 06/14/17 00:00 97.1 104 18 141/71 (94) 91 06/13/17 21:34 95 Nasal Cannula 2.00 06/13/17 20:00 97.2 87 18 141/68 (92) 92 06/13/17 16:00 99.0 80 20 136/58 (84) 94 06/13/17 12:00 97.6 101 20 124/59 (80) 95 I/O 06/13/17 06/13/17 06/13/17 06/14/17 06/14/17 06/14/17 07:00 15:00 23:00 07:00 15:00 23:00 Intake Total 480 ml 460 ml 1028 ml 250 ml Output Total 500 ml Balance 480 ml 460 ml 528 ml 250 ml Intake Oral 480 ml 460 ml 240 ml IV Total 788 ml 250 ml Output Urine Total 500 ml # Voids 2 2 3 # Bowel Movements 0 0 Result Diagram: 06/12/17 0635 06/14/17 [address] Angiography 06/13/17 0000 Signed Impressions: Service Date/Time: June 19:55 - CONCLUSION: 1. No evidence of pulmonary embolism. 2. Diffuse ground-glass infiltrates bilaterally suggestive of moderate pulmonary edema or pneumonia. Clinical correlation is recommended. 3. Pretracheal, right paratracheal, AP window and subcarinal mediastinal as well as bilateral hilar lymphadenopathy which is nonspecific. 4. Cardiomegaly. 5. Small bilateral pleural effusions. 6. Degenerative changes and scoliosis of the thoracolumbar spine. 7. Chronic mild compression deformity involving T12. Devin Parekh MD Chest X-Ray 06/12/17 0555 Signed Impressions: Service Date/Time: Monday, June 12, 2017 06:04 - CONCLUSION: There appears to be chronic bilateral interstitial lung disease. There is a focal parenchymal consolidation in the right upper lung. Federico Flower MD Objective Remarks Mildly labored breathing on BiPAP and now on Ventimask Breath sounds are coarse bilaterally and slightly diminished in bases No cyanosis noted, no lower extremity edema, very minimal JVD A/P Assessment and Plan Acute respiratory distress 2/2 hypoxia - Transient worsening o/n, doing ok on venti mask now. - Likely secondary to pneumonia and possible undiagnosed chronic lung disease secondary to secondhand smoke + hx of asthma plus possible heart failure - My independent review of the CT scan shows diffuse groundglass infiltrates as per the radiology read, I do see very small bilateral effusions, and some signs of cardiomegaly. Thus I'm ordering an echocardiogram and cutting off IV fluids until echo results RN. We'll give Lasix manually and cautiously to avoid any hypotension. Sepsis secondary to community-acquired pneumonia - antibiotics, f/u blood cultures, UC neg. blood cultures are negative. Holding IV fluids for now given above status Pneumonia - Antibiotics as above, DuoNebs - antigens ordered - negative - We'll consider lowering Solu-Medrol dose later tonight Hypokalemia - We'll immediately supplement with by mouth, hold off on IV given possible fluid overload, checking magnesium, recheck BMP in a.m. Hemoptysis - ? bronchitis vs other cause, CTA shows no obvious causes, no obvious recurrence since yesterday - fall precautions, PT eval given frail appearance gerd - home PPI dementia - home donepezil and memantine chronic pain - home celecoxib and norco Lovenox for DVT prevention Jose A Cao MD Jun 14, 2017 11:23
[2017-06-14] MEDS: ENOXAPARIN SODIUM 30 MG/0.3 ML SYRINGE SQ SCH (11:50)
[2017-06-14] MEDS ORDERED: POTASSIUM CHLORIDE 10 MEQ CONTROLLED RELEASE TAB PO SCH (12:00)
--- NOTE | 2017-06-14 12:48 | ECHRPT ---
Indication: SHORTNESS OF BREATH CONCLUSIONS The left ventricular systolic function is low normal with an estimated ejection fraction in the rang e of 50- 55%. Probable calcification on the chordae tendineae, partial mobile portion, not sure if chordal tear or vegetation Moderate mitral valve regurgitation. Trace aortic valve regurgitation. There is mild to moderate tricuspid valve regurgitation. BP: 158 / 69 HR: 88 Rhythm: Sinus MEASUREMENTS (Male / Female) Normal Values Technical Quality:Fair 2D ECHO LV Diastolic Diameter PLAX 3.6 cm 4.2 - 5.9 / 3.9 - 5.3 cm LV Systolic Diameter PLAX 2.6 cm IVS Diastolic Thickness 0.8 cm 0.6 - 1.0 / 0.6 - 0.9 cm LVPW Diastolic Thickness 0.8 cm 0.6 - 1.0 / 0.6 - 0.9 cm LV Relative Wall Thickness 0.5 RV Internal Dim ED PLAX 1.7 cm LVOT Diameter 1.9 cm Aortic Root Diameter 2.6 cm LA Systolic Diameter LX 2.8 cm 3.0 - 4.0 / 2.7 - 3.8 cm M-MODE AV Cusp Separation MM 1.5 cm DOPPLER AV Peak Velocity 113.0 cm/s AV Peak Gradient 5.1 mmHg AV Mean Gradient 3.0 mmHg AV Velocity Time Integral 28.2 cm LVOT Peak Velocity 68.9 cm/s LVOT Peak Gradient 1.9 mmHg LVOT Velocity Time Integral 15.2 cm AV Area Cont Eq vti 1.5 cm AV Area Cont Eq pk 1.7 cm Mitral E Point Velocity 150.0 cm/s Mitral A Point Velocity 145.0 cm/s Mitral E to A Ratio 1.0 LV E' Lateral Velocity 6.1 cm/s Mitral E to LV E' Lateral Ratio 24.4 LV E' Septal Velocity 4.9 cm/s Mitral E to LV E' Septal Ratio 30.8 TR Peak Velocity 330.0 cm/s TR Peak Gradient 43.6 mmHg Right Atrial Pressure 10.0 mmHg Pulmonary Artery Systolic Pressu 53.6 mmHg Right Ventricular Systolic Press 53.6 mmHg PV Peak Velocity 63.9 cm/s PV Peak Gradient 1.6 mmHg FINDINGS LEFT VENTRICLE Normal left ventricular size. Wall thickness is normal. The left ventricular systolic function is low normal with an estimated ejection fraction in the rang e of 50- 55%. Probable calcification on the chordae tendineae, partial mobile portion, not sure if chordal tear or vegetation RIGHT VENTRICLE Normal right ventricular size and systolic function. LEFT ATRIUM The left atrial size is moderately dilated. RIGHT ATRIUM The right atrial size is normal. ATRIAL SEPTUM Normal atrial septal thickness without atrial level shunting by limited color doppler interrogation. AORTA The aortic root and proximal ascending aorta are normal in size on limited imaging. MITRAL VALVE Moderate mitral valve regurgitation. Mild thickening of the mitral valve leaflets. Moderate mitral annular calcification. No mitral valve stenosis. AORTIC VALVE Aortic valve sclerosis is present. Trace aortic valve regurgitation. No aortic valve stenosis. TRICUSPID VALVE There is mild to moderate tricuspid valve regurgitation. The estimated pulmonary arterial pressure is 53.6 mmHg. No tricuspid valve stenosis. PULMONARY VALVE No pulmonary valve regurgitation or stenosis. VESSELS The inferior vena cava is normal in size. PERICARDIUM No pericardial effusion. Nirmal Irving DO (Electronically Signed) Final Date:14 June 2017 12:46
--- NOTE | 2017-06-14 18:53 | HHI.PR ---
Subjective Remarks In ICU for hypoxia. Now on O2 2 L Was given lasix IV . K+ level is 2.7. Objective Vital Signs Date Time Temp Pulse Resp B/P (MAP) Pulse Ox O2 Delivery O2 Flow Rate FiO2 06/14/17 18:00 82 21 126/65 (85) 95 06/14/17 17:00 96 23 112/71 (85) 94 06/14/17 16:00 97.5 100 26 122/77 (92) 94 06/14/17 15:00 78 22 136/60 (85) 98 06/14/17 14:00 86 22 135/70 (91) 96 06/14/17 13:00 86 23 127/65 (85) 95 06/14/17 12:00 96.8 102 26 131/87 (102) 95 06/14/17 11:00 88 24 132/62 (85) 95 06/14/17 10:00 64 26 122/61 (81) 93 06/14/17 09:40 95 Nasal Cannula 2.00 06/14/17 09:00 90 23 135/74 (94) 97 06/14/17 08:00 97.5 82 29 133/59 (83) 94 06/14/17 07:30 97 35 06/14/17 04:10 93 35 06/14/17 04:00 96.4 88 18 158/69 (98) 94 06/14/17 00:00 97.1 104 18 141/71 (94) 91 06/13/17 21:34 95 Nasal Cannula 2.00 06/13/17 20:00 97.2 87 18 141/68 (92) 92 I/O 06/13/17 06/13/17 06/13/17 06/14/17 06/14/17 06/14/17 07:00 15:00 23:00 07:00 15:00 23:00 Intake Total 480 ml 460 ml 1028 ml 250 ml 480 ml Output Total 500 ml 800 ml Balance 480 ml 460 ml 528 ml 250 ml -320 ml Intake Oral 480 ml 460 ml 240 ml 480 ml IV Total 788 ml 250 ml Output Urine Total 500 ml 800 ml # Voids 2 2 3 # Bowel Movements 0 0 0 Result Diagram: 06/12/17 0635 06/14/17 0950 Objective Remarks GENERAL: This is a thinly built elderly lady who is sitting upright in no acute distress on oxygen . HEENT: Head normocephalic. Pupils are reactive. Tongue is dry. Throat was clear. Nasal mucosa clear NECK: Supple. No bruits. No venous distension. No thyromegaly. CHEST: Equal movements with percussion note resonant throughout. Crackles heard throughout the lower lung srinivasan with wheezes bilaterally. HEART: Irregular S1, S2 with no murmur. No S3. ABDOMEN: Soft, scaphoid without masses. No organomegaly or tenderness. Bowel sounds are active. EXTREMITIES: No edema. Mild varicosities and no calf tenderness. Homans' sign is negative. NEUROLOGIC: Reflexes are 1+ with no gross motor deficits or sensory deficits. Cranial nerves grossly intact. RECTAL: Exam is deferred. Assessment and Plan Assessment and Plan IMPRESSION 1. Right upper lobe pneumonia with hypoxemia. 2. Interstitial lung disease with possible UIP 3. History of asthma. 4. Dementia. 5. Rule out pulmonary emboli 6. Degenerative arthritis. 7. CHF Plan: 1. Taper solumedrol to 60 mg IV q8h. 2. o2 at 2 L 3. Lasix 20 mg IV daily. 4. Replace potassium. 5. CXR BMP in am. 6. Cont Antibiotics , Rocephin ,Zithromax 7. 2 D echo. Shadia Bull MD Jun 14, 2017 18:52
[2017-06-14] MEDS: POTASSIUM CHLORIDE 20 MEQ CONTROLLED RELEASE TAB PO SCH (19:56)
[2017-06-14] MEDS: DONEPEZIL HCL 5 MG TAB PO SCH (19:57)
--- NOTE | 2017-06-14 21:28 | RADRPT ---
EXAM DATE/TIME: 06/14/2017 19:09 [facility] COMPARISON: CT PULMONARY ANGIOGRAM, June 13, 2017, 19:55. INDICATIONS : Shortness of breath. MEDICAL HISTORY : Dementia. Asthma SURGICAL HISTORY : Appendectomy. ENCOUNTER: Subsequent ACUITY: 4 - 6 days PAIN SCORE: 0/10 LOCATION: Bilateral chest FINDINGS: Persistent diffuse infiltrates are again noted consistent with moderate pulmonary edema versus pneumo [place]. Clinical correlation is recommended. The heart is enlarged. CONCLUSION: 1. Persistent diffuse infiltrates consistent with moderate pulmonary edema versus pneumonia. Clinical correlation is recommended. 2. Stable cardiomegaly. Devin Parekh MD on June 14, 2017 at 21:25 Board Certified Radiologist. This report was verified electronically.
[2017-06-14] MEDS: methylPREDNISolone SOD SUCC 40 MG/1 ML VIAL IV PUSH SCH (22:04)
[2017-06-15] VITALS (19 sets, daily range): BP systolic 110–159; BP diastolic 50–79; PULSE 84–120; RESP 17–35; TEMP 96.3–98.6; O2SAT 88–97
[2017-06-15] MEDS: RESP: ALBUTEROL 2.5 MG/IPRATROPIUM 0.5 MG NEB (SCH) NEB ×3 (03:10→19:32)
[2017-06-15] MEDS ORDERED: FUROSEMIDE 40 MG/4 ML VIAL IV PUSH ONE (04:15)
[2017-06-15] MEDS: methylPREDNISolone SOD SUCC 40 MG/1 ML VIAL IV PUSH SCH ×3 (05:46→20:20)
[2017-06-15] MEDS: cefTRIAXone INJ 1,000 MG in SODIUM CHLORIDE 0.9% INJ 100 ML IV SCH (05:47)
[2017-06-15 06:26] LABS: BICARBONATE 28.4 MEQ/L (21.0-32.0)
[2017-06-15] MEDS: AZITHROMYCIN INJ 500 MG in SODIUM CHLOR 0.9% 250 ML INJ 250 ML IV SCH (08:41)
[2017-06-15] MEDS: CELECOXIB 200 MG CAP PO SCH (08:41)
[2017-06-15] MEDS: POTASSIUM CHLORIDE 20 MEQ CONTROLLED RELEASE TAB PO SCH ×2 (08:41→20:20)
[2017-06-15] MEDS: FLUoxetine HCL 10 MG CAP PO SCH (08:41)
[2017-06-15] MEDS: MEMANTINE HCL 5 MG TAB PO SCH ×2 (08:41→20:20)
[2017-06-15] MEDS: PANTOPRAZOLE SOD 40 MG DELAYED RELEASE TAB PO SCH (08:41)
[2017-06-15] MEDS ORDERED: FUROSEMIDE 20 MG/2 ML VIAL IV PUSH SCH (09:00)
[2017-06-15] MEDS ORDERED: POTASSIUM CHLORIDE 20 MEQ CONTROLLED RELEASE TAB PO SCH (09:00)
[2017-06-15] MEDS: ENOXAPARIN SODIUM 30 MG/0.3 ML SYRINGE SQ SCH (12:02)
[2017-06-15] MEDS: ACETAMINOPHEN/HYDROcodone 325 MG/5 MG TAB PO PRN (12:21)
--- NOTE | 2017-06-15 15:10 | HHI.PR ---
Subjective Remarks Nursing denies any deterioration since last night except for mild pink tinged phlegm. Patient says she still doesn't feel as good as she'd want to; although when asked why, she has no further explanation. Objective Vital Signs Date Time Temp Pulse Resp B/P (MAP) Pulse Ox O2 Delivery O2 Flow Rate FiO2 06/15/17 13:00 88 27 117/50 (72) 90 06/15/17 12:00 98 22 124/61 (82) 93 06/15/17 12:00 98 22 124/61 (82) 93 06/15/17 11:00 88 27 133/66 (88) 95 06/15/17 11:00 88 27 133/66 (88) 95 06/15/17 10:00 104 23 110/64 (79) 94 06/15/17 09:41 96 Nasal Cannula 4.00 06/15/17 09:00 98.2 102 24 141/77 (98) 93 06/15/17 09:00 102 24 141/77 (98) 93 06/15/17 08:00 84 22 149/71 (97) 97 06/15/17 07:00 88 21 145/67 (93) 97 06/15/17 06:00 98 24 146/70 (95) 91 06/15/17 06:00 98 06/15/17 05:00 90 23 138/67 (90) 95 06/15/17 04:00 100 06/15/17 04:00 98.5 100 26 150/77 (101) 94 06/15/17 03:00 90 25 150/79 (102) 93 06/15/17 02:00 88 24 159/78 (105) 93 06/15/17 02:00 88 06/15/17 01:00 92 24 152/76 (101) 94 06/15/17 00:00 120 06/15/17 00:00 97.5 120 35 149/78 (101) 88 06/14/17 23:00 92 27 126/63 (84) 95 06/14/17 22:00 114 28 138/45 (76) 82 06/14/17 22:00 114 06/14/17 21:04 97 Nasal Cannula 2.50 06/14/17 21:00 78 22 148/65 (92) 97 06/14/17 20:00 103 06/14/17 20:00 97.8 104 22 151/74 (99) 92 06/14/17 19:00 104 28 125/79 (94) 93 06/14/17 18:00 82 21 126/65 (85) 95 06/14/17 17:00 96 23 112/71 (85) 94 06/14/17 16:00 97.5 100 26 122/77 (92) 94 I/O 06/14/17 06/14/17 06/14/17 06/15/17 06/15/17 06/15/17 07:00 15:00 23:00 07:00 15:00 23:00 Intake Total 1028 ml 250 ml 480 ml 460 ml 720 ml Output Total 500 ml 800 ml 1225 ml 950 ml Balance 528 ml 250 ml -320 ml -765 ml -230 ml Intake Oral 240 ml 480 ml 360 ml 720 ml IV Total 788 ml 250 ml 100 ml Output Urine Total 500 ml 800 ml 1225 ml 950 ml # Voids 3 1 # Bowel Movements 0 0 Result Diagram: 06/12/17 0635 06/15/17 0600 Objective Remarks unlabored breathing on 2 L impressive wheezing BL, heart sounds rrr A/P Assessment and Plan Acute respiratory distress 2/2 hypoxia - Improving, requiring 2 L today - Likely secondary to pneumonia and possible undiagnosed chronic lung disease secondary to secondhand smoke + hx of asthma plus possible heart failure - My independent review of the CT scan shows diffuse groundglass infiltrates as per the radiology read, I do see very small bilateral effusions, and some signs of cardiomegaly. Thus I'm ordering an echocardiogram and cutting off IV fluids until echo results RN. We'll give Lasix manually and cautiously to avoid any hypotension. - echo is stable community-acquired pneumonia - antibiotics, f/u blood cultures neg x 3. UC neg. blood cultures are negative. Holding IV fluids for now given above status Hypokalemia - still needing supplement, recheck BMP in AM Hemoptysis - ? bronchitis vs other cause, CTA shows no obvious causes, no obvious recurrence since yesterday - fall precautions, PT eval given frail appearance gerd - home PPI dementia - home donepezil and memantine chronic pain - home celecoxib and norco Lovenox for DVT prevention Jose A Cao MD Jun 15, 2017 15:10
[2017-06-15] MEDS ORDERED: POTASSIUM CHLORIDE 20 MEQ CONTROLLED RELEASE TAB PO ONE (15:15)
[2017-06-15] MEDS ORDERED: METOLAZONE 2.5 MG TAB PO ONE (15:15)
[2017-06-15] MEDS: DONEPEZIL HCL 5 MG TAB PO SCH (20:20)
[2017-06-16] VITALS (9 sets, daily range): BP systolic 102–137; BP diastolic 54–71; PULSE 79–100; RESP 16–22; TEMP 97–98.6; O2SAT 86–98
[2017-06-16] MEDS: cefTRIAXone INJ 1,000 MG in SODIUM CHLORIDE 0.9% INJ 100 ML IV SCH (06:14)
[2017-06-16 06:49] LABS: POTASSIUM 3.3 MEQ/L (3.5-5.1)
[2017-06-16 06:55] LABS: BICARBONATE 30.7 MEQ/L (21.0-32.0)
[2017-06-16] MEDS: RESP: ALBUTEROL 2.5 MG/IPRATROPIUM 0.5 MG NEB (SCH) NEB ×3 (07:50→19:20)
[2017-06-16] MEDS ORDERED: FUROSEMIDE 20 MG/2 ML VIAL IV PUSH ONE (08:00)
[2017-06-16] MEDS: MEMANTINE HCL 5 MG TAB PO SCH ×2 (08:12→20:43)
[2017-06-16] MEDS: CELECOXIB 200 MG CAP PO SCH (08:12)
[2017-06-16] MEDS: AZITHROMYCIN INJ 500 MG in SODIUM CHLOR 0.9% 250 ML INJ 250 ML IV SCH (08:12)
[2017-06-16] MEDS: POTASSIUM CHLORIDE 20 MEQ CONTROLLED RELEASE TAB PO SCH ×2 (08:13→20:43)
[2017-06-16] MEDS: PANTOPRAZOLE SOD 40 MG DELAYED RELEASE TAB PO SCH (08:13)
[2017-06-16] MEDS: methylPREDNISolone SOD SUCC 40 MG/1 ML VIAL IV PUSH SCH ×2 (09:00→20:42)
[2017-06-16] MEDS: ENOXAPARIN SODIUM 30 MG/0.3 ML SYRINGE SQ SCH (10:27)
[2017-06-16] MEDS: FLUoxetine HCL 10 MG CAP PO SCH (10:27)
--- NOTE | 2017-06-16 16:49 | HHI.PR ---
Subjective Remarks Respiratory therapy reports that the patient is still requiring 2 L, she will desat to the 80s on room air. Patient herself says she can go home alone because there is no other to help her. Has no new complaints at this time. Objective Vital Signs Date Time Temp Pulse Resp B/P (MAP) Pulse Ox O2 Delivery O2 Flow Rate FiO2 06/16/17 12:00 97.0 88 20 130/60 (83) 94 06/16/17 08:00 97.8 89 22 121/62 (81) 96 06/16/17 07:55 95 Nasal Cannula 2.00 06/16/17 07:50 86 21 06/16/17 04:00 98.2 85 18 137/71 (93) 96 06/16/17 00:00 98.6 100 18 130/71 (90) 97 06/15/17 20:00 98.6 110 18 136/62 (86) 93 06/15/17 19:30 94 Nasal Cannula 3.00 I/O 06/15/17 06/15/17 06/15/17 06/16/17 06/16/17 06/16/17 07:00 15:00 23:00 07:00 15:00 23:00 Intake Total 460 ml 720 ml 200 ml 650 ml Output Total 1225 ml 950 ml 250 ml 625 ml Balance -765 ml -230 ml -250 ml 200 ml 25 ml Intake Oral 360 ml 720 ml 650 ml IV Total 100 ml 200 ml Output Urine Total 1225 ml 950 ml 250 ml 625 ml # Voids 1 5 # Bowel Movements 0 Result Diagram: 06/12/17 0635 06/16/17 0550 Objective Remarks unlabored breathing on 2 L unchanged anterior wheezing BL, heart sounds rrr A/P Assessment and Plan Acute respiratory distress 2/2 hypoxia - Unchanged oxygen requirement of 2 L - I suspect she will go home on this tomorrow - Likely secondary to pneumonia and possible undiagnosed chronic lung disease secondary to secondhand smoke + hx of asthma plus possible heart failure - on low dose lasix and metolazone per pulm, appreciate inpt, suspect mild hemoptysis from bronchiectasis - echo is stable community-acquired pneumonia - antibiotics, f/u blood cultures neg.UC neg. blood cultures are negative. Hypokalemia - improving, replacing Hemoptysis -per pulm, appreciate inpt, suspect mild hemoptysis from bronchiectasis, no need for bronchoscopy - fall precautions, PT eval given frail appearance gerd - home PPI dementia - home donepezil and memantine chronic pain - home celecoxib and norco Lovenox for DVT prevention Anticipate SNF placement in AM Jose A Cao MD Jun 16, 2017 16:49
[2017-06-16] MEDS ORDERED: FUROSEMIDE 40 MG/4 ML VIAL IV PUSH SCH (18:00)
[2017-06-16] MEDS: DONEPEZIL HCL 5 MG TAB PO SCH (20:42)
[2017-06-17] VITALS: BP 124/70; PULSE 108; RESP 16; TEMP 99.1; O2SAT 96
[2017-06-17 05:57] LABS: BICARBONATE 30.4 MEQ/L (21.0-32.0); POTASSIUM 4.5 MEQ/L (3.5-5.1)
[2017-06-17] MEDS: cefTRIAXone INJ 1,000 MG in SODIUM CHLORIDE 0.9% INJ 100 ML IV SCH (06:49)
[2017-06-17 07:26] VITALS: O2SAT 98
[2017-06-17] MEDS: RESP: ALBUTEROL 2.5 MG/IPRATROPIUM 0.5 MG NEB (SCH) NEB ×2 (07:26→13:47)
[2017-06-17] MEDS: AZITHROMYCIN INJ 500 MG in SODIUM CHLOR 0.9% 250 ML INJ 250 ML IV SCH (07:55)
[2017-06-17] MEDS: methylPREDNISolone SOD SUCC 40 MG/1 ML VIAL IV PUSH SCH (07:56)
[2017-06-17] MEDS: FLUoxetine HCL 10 MG CAP PO SCH (07:56)
[2017-06-17] MEDS: PANTOPRAZOLE SOD 40 MG DELAYED RELEASE TAB PO SCH (07:57)
[2017-06-17] MEDS: CELECOXIB 200 MG CAP PO SCH (07:57)
[2017-06-17] MEDS: POTASSIUM CHLORIDE 20 MEQ CONTROLLED RELEASE TAB PO SCH (07:57)
[2017-06-17] MEDS: MEMANTINE HCL 5 MG TAB PO SCH (07:57)
[2017-06-17 08:00] VITALS: BP 123/59; PULSE 73; RESP 18; TEMP 96.8; O2SAT 95
[2017-06-17] MEDS ORDERED: FUROSEMIDE 40 MG TAB PO SCH (09:00)
--- NOTE | 2017-06-17 09:19 | RADRPT ---
EXAM DATE/TIME: 06/17/2017 08:25 [facility] COMPARISON: CHEST SINGLE AP, June 14, 2017, 19:09. INDICATIONS : Short of Breath MEDICAL HISTORY : Dementia, Asthma SURGICAL HISTORY : Appendectomy. ENCOUNTER: Subsequent ACUITY: 1 week PAIN SCORE: 0/10 LOCATION: Bilateral chest FINDINGS: A single view of the chest demonstrates a minimal airspace disease in the upper lobes greater on the left. Lung bases are clear. Heart normal size. Osseous structures are intact. CONCLUSION: Improving bilateral upper lobe consolidation/pneumonia. Royce Marmolejo MD on June 17, 2017 at 9:17 Board Certified Radiologist. This report was verified electronically.
[2017-06-17] MEDS ORDERED: PULM90IN INH (09:36)
[2017-06-17] MEDS ORDERED: ALBU1.25 NEB (09:36)
[2017-06-17] MEDS ORDERED: PRED10PA2 PO (09:36)
[2017-06-17] MEDS ORDERED: CEFD300C PO (09:36)
[2017-06-17] MEDS ORDERED: POTA20TA5 PO (09:36)
[2017-06-17] MEDS ORDERED: FURO40TA PO (09:38)
--- NOTE | 2017-06-17 09:39 | HHI.DCPOC ---
Discharge Care Plan Diagnosis: (1) Chronic interstitial lung disease (2) Acute respiratory failure with hypoxia (3) Pneumonia Goals to Promote Your Health * To prevent worsening of your condition and complications * To maintain your health at the optimal level Directions to Meet Your Goals Take your medications as prescribed Follow your dietary instruction Follow activity as directed Keep your appointments as scheduled Take your immunizations and boosters as scheduled If your symptoms worsen call your PCP, if no PCP go to Urgent Care Center or Emergency Room Smoking is Dangerous to Your Health. Avoid second hand smoke Call the 24-hour hour crisis hotline for domestic abuse at Jose A Cao MD Jun 17, 2017 09:39
--- NOTE | 2017-06-17 09:41 | HHI.DS ---
Discharge Summary Admission Date Jun 12, 2017 at 10:57 Discharge Date: Jun 17, 2017 Admitting Diagnosis Pneumonia, Hypoxic respiratory failure. (1) Acute respiratory failure with hypoxia ICD Code: J96.01 - Acute respiratory failure with hypoxia (2) Pneumonia ICD Code: J18.9 - Pneumonia, unspecified organism Status: Acute (3) Chronic interstitial lung disease ICD Code: J84.9 - Interstitial pulmonary disease, unspecified Procedures none Brief History - From Admission 86-year-old white female being admitted for sepsis secondary to pneumonia. Full history was attempted however history is limited since the patient is very hard of hearing (thus unable to answer all questions) and is disoriented at least partially (to time). Per the patient she states that she started feeling sick at home last night, had poor sleep, had increased coughing and did have some nonspecific vomiting which was "a little bit." She said her son brought her to the emergency room. Patient denies any diarrhea or abdominal pain or any dysuria. She thinks it's 1970s and is unsure of what month it is. She says she lives with her son. In the emergency room she was found to have an elevated white count and a Angelika < 2. Given zithromax and rocephin. CBC/BMP: 06/17/17 0515 Significant Findings Laboratory Tests Test 06/14/17 09:50 06/14/17 10:15 06/14/17 20:20 06/15/17 06:00 Random Glucose 138 MG/DL (74-106) 150 MG/DL (74-106) Calcium Level 7.6 MG/DL (8.5-10.1) 8.1 MG/DL (8.5-10.1) Potassium Level 2.7 MEQ/L (3.5-5.1) 3.0 MEQ/L (3.5-5.1) B-Type Natriuretic Peptide 671 PG/ML (0-100) Blood Gas HCO3 29 mmol/L (22-26) Blood Gas Base Excess 5.5 mmol/L (-2-2) Arterial Blood pH 7.53 (7.380-7.420) Arterial Blood Partial Pressure CO2 34 mmHg (38-42) Blood Gas Hemoglobin 10.8 G/DL (12.0-16.0) Blood Urea Nitrogen 19 MG/DL (7-18) Test 06/16/17 05:50 06/17/17 05:15 Blood Urea Nitrogen 22 MG/DL (7-18) 22 MG/DL (7-18) Creatinine 0.45 MG/DL (0.50-1.00) 0.46 MG/DL (0.50-1.00) Calcium Level 8.1 MG/DL (8.5-10.1) 8.2 MG/DL (8.5-10.1) Potassium Level 3.3 MEQ/L (3.5-5.1) Chloride Level 97 MEQ/L (98-107) 96 MEQ/L (98-107) Random Glucose 135 MG/DL (74-106) Sodium Level 132 MEQ/L (136-145) Imaging Last Impressions Chest X-Ray 06/17/17 0800 Signed Impressions: Service Date/Time: Saturday, June 17, 2017 08:25 - CONCLUSION: Improving bilateral upper lobe consolidation/pneumonia. Royce Marmolejo MD CT Angiography 06/13/17 0000 Signed Impressions: Service Date/Time: June 19:55 - CONCLUSION: 1. No evidence of pulmonary embolism. 2. Diffuse ground-glass infiltrates bilaterally suggestive of moderate pulmonary edema or pneumonia. Clinical correlation is recommended. 3. Pretracheal, right paratracheal, AP window and subcarinal mediastinal as well as bilateral hilar lymphadenopathy which is nonspecific. 4. Cardiomegaly. 5. Small bilateral pleural effusions. 6. Degenerative changes and scoliosis of the thoracolumbar spine. 7. Chronic mild compression deformity involving T12. Devin Parekh MD PE at Discharge coarse BS BL, unlabored breathing, NS in nose Hospital Course Patient was admitted, started on oxygen supplementation and steroids and antibiotics. Due to her persistent hypoxia and her lack of hospitalizations in her lifelong history, pulmonology was consulted for further assistance. CT angiogram was negative for pulmonary embolism but showed findings strongly suggestive of chronic interstitial lung disease. The patient did have some mild intermittent hemoptysis which pulmonology concluded was likely due to bronchiectasis and deferred bronchoscopy at the time unless symptoms worsened. Patient had a cardiac ground done which showed an intact ejection fraction. Low -dose diuresis was started as well as the patient. The patient's hypoxia persisted requiring 2 L and thus it was concluded that she would have to be discharged on home oxygen therapy. Patient was informed that she needs to follow-up with pulmonology as an outpatient. Patient has met maximal benefit from hospitalization and is clinically stable for discharge to a rehabilitation facility. She is to complete an antibiotic course as well as a prolonged steroid taper. Pt Condition on Discharge: Stable Discharge Disposition: Discharge to SNF Discharge Time: <= 30 minutes Discharge Instructions DIET: Follow Instructions for: Heart Healthy Diet Activities you can perform: See Additionl Instruction Other Activity Instructions: PER PT assessment Follow up Referrals: PCP Follow-up - 2 Weeks Pulmonology - 10 Days with Shadia Bull MD New Medications: Budesonide Powder Inh (Pulmicort Flexhaler) 90 Mcg/Act Inhp 90 MCG INH Q12HR for Asthma Management, #1 INHALER 0 Refills Cefdinir (Cefdinir) 300 Mg Cap 600 MG PO DAILY for Infection, #6 CAP 0 Refills Furosemide (Furosemide) 40 Mg Tab 40 MG PO DAILY for fluid, #30 TAB 0 Refills Prednisone (48) 10 mg tab Dose Pack (Prednisone (48) 10 mg tab Dose Pack) 10 Mg Dspk 10 MG PO DIRECTED for Inflammation, #1 DSPK 0 Refills Albuterol Neb (Albuterol Neb) 1.25 Mg/3 Ml Neb 1.25 MG NEB Q2HR NEB PRN for wheezing, #30 NEBULE Potassium Chloride Microencaps (Potassium Chloride Microencaps) 20 Meq Tab 20 MEQ PO BID for electrolytes, #60 TAB Continued Medications: Celecoxib (Celecoxib) 200 Mg Cap 200 MG PO DAILY for Pain Management, CAP 0 Refills Donepezil (Donepezil) 5 Mg Tab 5 MG PO HS for Dementia, #30 TAB 0 Refills Fluoxetine (Fluoxetine) 10 Mg Tab 10 MG PO DAILY, #30 TAB 0 Refills Hydrocodone-Acetaminophen (Hydrocodone-Acetaminophen) 5-325 mg Tab 1 TAB PO BID PRN for PAIN, TAB 0 Refills Memantine (Memantine) 5 Mg Tab 5 MG PO BID for Alzheimer's Dementia, TAB 0 Refills Omeprazole (Omeprazole) 40 Mg Cap 40 MG PO DAILY, #30 CAP 0 Refills Jose A Cao MD Jun 17, 2017 09:41
[2017-06-17 12:00] VITALS: BP 108/56; PULSE 94; RESP 16; TEMP 97.3; O2SAT 95
[2017-06-17] MEDS: ENOXAPARIN SODIUM 30 MG/0.3 ML SYRINGE SQ SCH (12:58)
[2017-06-17] MEDS ORDERED: HYDR-3516 PO (14:02)
== END 2017-06-17 14:15 | DRG 871 ==
LOC: PHED 05:45 → INTOOBSV 07:57 → PHEDA 07:57 → PH3A 09:51 → OBSVTOIN 10:57 → PHICU 06-14 05:53 → PH3B 06-15 16:26
PROVIDERS: ADMIT Hospitalist; ATTEND Hospitalist
PROC: 3E0F7GC Introduction of Other Therapeutic Substance into Respiratory Tract, Via Natural or Artificial Opening (ICD-10-PCS; principal; 2017-06-12)
DX: A41.9 Sepsis, unspecified organism (principal); J18.9 Pneumonia, unspecified organism; J96.01 Acute respiratory failure with hypoxia; J84.10 Pulmonary fibrosis, unspecified; F03.90 Unspecified dementia, unspecified severity, without behavioral disturbance, psychotic disturbance, mood disturbance, and anxiety; M19.90 Unspecified osteoarthritis, unspecified site; H91.90 Unspecified hearing loss, unspecified ear; J45.909 Unspecified asthma, uncomplicated; F41.9 Anxiety disorder, unspecified; F32.9 Major depressive disorder, single episode, unspecified; R11.2 Nausea with vomiting, unspecified; G89.29 Other chronic pain; K21.9 Gastro-esophageal reflux disease without esophagitis; Z77.22 Contact with and (suspected) exposure to environmental tobacco smoke (acute) (chronic); I83.90 Asymptomatic varicose veins of unspecified lower extremity; E87.6 Hypokalemia
CPT/HCPCS: 36600; 71010; 71020; 71275; 76937; 80048; 80053; 81001; 82805; 83605; 83735; 83880; 85025; 85379; 87040; 87070; 87086; 87205; 87449; 87641; 87804; 88112; 88305; 93005; 93306; 94002; 94640; 94664; 96374; J0456; J0696; J1650; J1940; J2270; J2920; J2930; J7030; J7050; J7613; Q9967